=== PATIENT | female | born 1975 | race Caucasian/White ===

== ENCOUNTER 2019-02-18 17:12 | Emergency (ER) | payer OTHER ==
[~2019-02-18] VITALS: Ht 162.6 cm; Wt 76.0 kg
[~2019-02-18 17:12] MED LIST: ALB.5NB20 IH; CYCL10TA7 PO; NAPR-985 PO; OMEP20CA9 PO
[2019-02-18 17:17] VITALS: Ht 162.6 cm; Wt 76.0 kg
[2019-02-18] MEDS ORDERED: SOD CHLORIDE 0.9% 1,000 ML IV STA (17:58)
[2019-02-18] MEDS ORDERED: KETOROLAC 15 MG INJ IV STA (17:58)
[2019-02-18] MEDS ORDERED: ONDANSETRON 4 MG INJ IV STA (17:58)
[2019-02-18] MEDS ORDERED: SOD CHLORIDE 0.9% 100 ML ONE (20:12)
[2019-02-18] MEDS ORDERED: IOHEXOL 300MG/ML 150 ML BTL ONE (20:12)
[2019-02-18] MEDS ORDERED: ACETAMINOPHEN 325 MG TAB PO ONE (20:30)
[2019-02-18 21:50] VITALS: BP 137/87; PULSE 65; RESP 14
== END 2019-02-18 20:50 | disposition home or self-care (01) ==
LOC: FTE 17:12
DX: M54.5 Low back pain (principal); J45.909 Unspecified asthma, uncomplicated; R10.9 Unspecified abdominal pain
CPT/HCPCS: 36415; 72131; 74177; 80053; 81001; 81025; 83690; 85025; 85610; 85730; 96361; 96374; 96375; 99285; J1885; J2405; J7030; Q9967